=== PATIENT | male | born 1980 | race African-American/Black ===

== ENCOUNTER 2016-10-24 23:40 | Emergency (ER) | payer OTHER ==
[2016-10-25] MEDS ORDERED: SILVER SULFADIAZINE 1% TOP CREAM 50 GM JAR TP ONE ×2 (01:04→01:25)
--- NOTE | 2016-10-25 01:07 | PDOC ---
History of Present Illness - General Chief Complaint: Burn Stated Complaint: R ARM BURN Time Seen by Provider: 10/25/16 00:44 History Source: Patient - History of Present Illness Initial Comments: 10/25/16 01:01 36-year-old male who is an employee at [employer] reports burn to his right forearm while cooking. She reports to the ER today because of skin peeling and irritation to the area. Patient has no increased redness, streaking or pain to the area at this time. last tetanus 2 years ago. Past History - Past Medical History Home Medications: Ambulatory Orders Silver Sulfadiazine [Silvadene] 1 applic TP TID #1 cream..g. 10/25/16 Review of Systems - Review of Systems Able to Perform ROS?: Yes Is the patient limited Upper Sorbian proficient: No Integumentary: Yes: Other (burn) Progress Note - Progress Note Progress Note: healing secondary degree burn. P: silvadene. *DC/Admit/Observation/Transfer Diagnosis at time of Disposition: Second degree burn of arm Qualifiers: Encounter type: initial encounter Upper extremity location: forearm Laterality : right Qualified Code(s): T22.211A - Burn of second degree of right forearm, initial encounter - Discharge Dispostion Disposition: HOME - Prescriptions Prescriptions: Silver Sulfadiazine [Silvadene] 1 applic TP TID #1 cream..g. - Patient Instructions Printed Discharge Instructions: DI for [facility] Additional Instructions: apply silvadene to forearm three times daily follow up with your doctor for a wound check.
[2016-10-25 01:24] VITALS: BP 143/84; PULSE 73; TEMP 98.6; BMI 26.5
== END 2016-10-25 01:59 | disposition home or self-care (01) ==
LOC: JER 23:40
PROC: 2W2CX4Z Dressing of Right Lower Arm using Bandage (ICD-10-PCS; principal; 2016-10-24)
DX: T22.211A Burn of second degree of right forearm, initial encounter (principal); X19.XXXA Contact with other heat and hot substances, initial encounter; Y93.G3 Activity, cooking and baking; Y92.511 Restaurant or cafe as the place of occurrence of the external cause; Y99.0 Civilian activity done for income or pay
CPT/HCPCS: 99281-25